=== PATIENT | female | born 1985 | race Caucasian/White ===

== ENCOUNTER 2019-11-16 00:17 | Emergency (ER) | payer SELFPAY ==
[2019-11-16 00:25] VITALS: BP 131/69; PULSE 74; TEMP 98; BMI 23.3
--- NOTE | 2019-11-16 00:38 | PDOC ---
History of Present Illness - General Chief Complaint: Pain, Acute Stated Complaint: LOWER ABDOMINAL PAIN/SPOTTING Time Seen by Provider: 11/16/19 00:20 History Source: Patient Exam Limitations: No Limitations - History of Present Illness Initial Comments: 11/16/19 00:36 This is a 24-year-old female who comes in complaining of pelvic pain times several weeks worse over the last several days. Patient says she has had intermittent spotting during that time. Patient's last menstrual period was 28 days ago. Patient had a [id number] test done here that was negative. Patient took 2 Tylenol for the pain prior to coming in. Patient denies any fevers, chills, nausea, vomiting, diarrhea, frequency, dysuria or any urinary complaints. Allergies: as per nursing notes Past Medical History: none Social history: Lives with family. No smoking. No alcohol. No illicit drugs. Surgical history: None General: No fevers or chills, no weakness, no weight loss HEENT: No change in vision. No sore throat,. No ear pain CardioVascular: no chest discomfort. No shortness of breath Respiratory:No cough, or wheezing. Gastrointestinal: no nausea, vomiting, diarrhea or constipation, No rectal bleeding Genitourinary: No dysuria, hematuria, or frequency Musculoskeletal: No joint or muscle pain or swelling Neurologic: No headache, vertigo, dizziness or loss of consciousness Psychiatric: nor depression Skin: No rashes or easy bruising Endocrine: no increased thirst or abnormal weight change Allergic: no skin or latex allergy All other systems reviewed and normal Exam: General: Well-nourished well-developed individual, no acute distress HEENT: Throat: Normal, tonsils normal, no erythema or exudate Neck: Supple, no meningeal signs, no lymphadenopathy Eyes::Pupils equal reactive and round, extraocular motion intact Chest: Nontender to palpation Cardiac: S1-S2 normal, regular rate and rhythm, no murmurs rubs or gallops Respiratory: Lungs clear to auscultation bilateral Abdomen: Soft, nondistended, normal bowel sounds, tender on palpation across the lower abdominal/pelvic area Pelvic exam: There is a small amount of darkish blood in the vaginal vault. There is no cervical motion tenderness and the office is closed. There is bilateral adnexal tenderness on palpation but no adnexal masses are palpable Extremities: Warm, dry, no cyanosis, clubbing, or edema Skin: No rashes Neuro: Alert and oriented x3, CN II - XII intact, nonfocal exam with normal strength, normal sensation, normal reflexes, normal gait, Psych: Normal mood and affect Assessment and plan: 24-year-old female with pelvic pain. Patient has a negative test. Ultrasound of her pelvis was ordered to rule out ovarian torsion rule out ovarian cyst. Past History - Past Medical History Allergies/Adverse Reactions: Allergies Allergy/AdvReac Type Severity Reaction Status Date / Time ibuprofen Allergy Verified 11/16/19 00:20 Home Medications: Ambulatory Orders NK [No Known Home Medication] 11/16/19 COPD: No Other medical history: DENIES - Psycho Social/Smoking Cessation Hx Smoking History: Never smoked Have you smoked in the past 12 months: No Information on smoking cessation initiated: No Hx Alcohol Use: No Drug/Substance Use Hx: No *Physical Exam - Vital Signs Last Vital Signs Temp Pulse Resp BP Pulse Ox 98 F 74 16 131/69 98 11/16/19 00:21 11/16/19 00:21 11/16/19 00:21 11/16/19 00:21 11/16/19 00:21 Discharge - Discharge Information Problems reviewed: Yes Clinical Impression/Diagnosis: Pelvic pain Condition: Stable Disposition: HOME - Admission No - Follow up/Referral - Patient Discharge Instructions Additional Instructions: Tylenol as needed for the pain Follow-up with your OB this week Return to the emergency department immediately with ANY new, persistent or worsening symptoms. Continue any medications as previously prescribed by your physician. You should follow up with your primary doctor as soon as possible regarding today's emergency department visit. . Please make sure your doctor reviews the results of your emergency evaluation. Thank you for coming to the Emergency Department today for your care. It was a pleasure to see you today. Please note that your evaluation is INCOMPLETE until you follow-up with your doctor. - Post Discharge Activity
== END 2019-11-16 02:56 | disposition home or self-care (01) ==
LOC: FER 00:17 → EDBD 00:17 → FER 02:56
DX: R10.2 Pelvic and perineal pain (principal); Z88.8 Allergy status to other drugs, medicaments and biological substances
CPT/HCPCS: 76830-TC; 81025; 99281-25

== ENCOUNTER 2021-05-10 07:31 | Day surgery (SDC) | payer BC ==
[2021-05-10] MEDS ORDERED: PROPOFOL 20 ML ONE ×4 (07:48)
[2021-05-10] MEDS ORDERED: LIDOCAINE HCL/PF 2% SDV 5ML VIAL ONE (07:48)
[2021-05-10 07:51] VITALS: BMI 23.9
[2021-05-10 16:40] VITALS: TEMP 98
[2021-05-10 16:52] VITALS: BP 100/45; PULSE 62
== END 2021-05-10 10:00 | disposition home or self-care (01) ==
LOC: FASU-ENDO 07:31
PROVIDERS: ATTEND Internal Medicine Gastroenterology
PROC: 0DJD8ZZ Inspection of Lower Intestinal Tract, Via Natural or Artificial Opening Endoscopic (ICD-10-PCS; principal; 2021-05-10 08:24)
DX: Z86.010 Personal history of colon polyps (principal)
CPT/HCPCS: 81025